=== PATIENT | male | born 1980 | race Caucasian/White ===

== ENCOUNTER 2017-01-07 08:24 | Emergency (ER) | payer OTHER ==
[~2017-01-07] VITALS: Ht 170.1 cm; Wt 79.4 kg
[2017-01-07] MEDS ORDERED: ISENTRESS400 MG PO (08:36)
[2017-01-07] MEDS ORDERED: TRUVADA 200 MG-1 TA1 PO (08:36)
[2017-01-07] MEDS ORDERED: ZITHROMAX250 MG PO (10:48)
== END 2017-01-07 11:18 | disposition home or self-care (01) ==
LOC: ED 08:24
DX: J40 Bronchitis, not specified as acute or chronic (principal); F17.200 Nicotine dependence, unspecified, uncomplicated; Z79.899 Other long term (current) drug therapy